=== PATIENT | female | born 1985 | race Caucasian/White ===

== ENCOUNTER 2021-03-21 09:17 | Emergency (ER) | payer SELFPAY ==
[2021-03-21 09:30] VITALS: BP 106/76; PULSE 85; RESP 18; TEMP 35.8; O2SAT 100
--- NOTE | 2021-03-21 10:30 | ED.ANIMALBIT ---
HPI - Animal Bite General Chief Complaint: Animal Bite Stated Complaint: dog bite Time Seen by Provider: 03/21/21 10:30 Source: patient and RN notes reviewed Mode of arrival: ambulatory Limitations: no limitations History of Present Illness HPI narrative: 35-year-old female presents concern for a dog bite to her right hand. I reports the bite occurred on Saturday night. Reports several puncture wounds and lacerations. Reports she has been using antibiotic ointment, warm compresses, ice. Reports she used a needle to open a blood blister. She reports the area is warm, red, slightly tender to touch, tender when she moves her fifth digit. She denies any general malaise, fever. MD complaint: animal bite Related Data Allergies Allergy/AdvReac Type Severity Reaction Status Date / Time No Known Allergies Allergy Verified 03/21/21 09:43 Review of Systems Review of Systems: CONSTITUTIONAL: Denies malaise, chills, sweats, or fever. CARDIOVASCULAR: Denies chest pain, palpitations, or edema. SKIN: Reports lacerations and puncture wounds to the right hand, reports surrounding redness, tenderness MUSCULOSKELETAL: Denies myalgia. Denies decreased strength, sensation, range of motion NEUROLOGIC: Denies numbness, weakness All systems reviewed & are unremarkable except as noted in HPI and below PMFSH Family History Family History (Updated 03/24/18 @ 16:11 by DOCTOR UNKNOWN) Father Patient's father is in good health Sibling Patient's brother is in good health Other Diabetes mellitus Social History Social History Smoking status: Never smoker Alcohol intake: current Comments At time of signature, agree with nursing past medical, surgical, social and family history. There is no relevant family history pertinent to the presenting complaint Exam Narrative: GENERAL: Well-appearing, well-nourished, and in no acute distress. HEAD: Normocephalic EYES: PERRLA, conjunctivae clear NECK: Supple. CHEST: Speaks in full sentences. No respiratory distress. HEART: Regular rate and rhythm. Normal and equal peripheral pulses. EXTREMITIES: Right hand and digits of hand have normal strength and sensation. 5/5 strength with digit flexion, extension. Range of motion normal. No clubbing, cyanosis noted. Mild edema, erythema, tenderness, warmth at the base of digits 4 and 5 surrounding scabbed lacerations. Normal digital cascade with flexion of fingers, median, ulnar and radial nerve intact. Normal sensation of each side of finger. Can perform 'okay' sign, 'cross over finger test of index and middle fingers' and 'thumbs up' sign. No scissoring. Normal thumb opposition. Good capillary refill and radial pulse. Distal capillary refill less than 3 seconds. SKIN: Warn, dry, intact, pink. No rash. 3 linear scabbed lacerations noted surrounding the base of digits 4 and 5 of the right hand with surrounding erythema, mild edema, mild induration, warmth. NEURO: Alert and oriented x3. PSYCH: Normal mood and affect Course Course Emergency Course: Patient is aware of diagnosis, understands and agrees to treatment plan. Anticipatory guidance given. Patient agrees to follow-up as directed and is aware of reasons to seek care at the emergency department. Portions of this record may have been created with voice recognition software Vital Signs Vital signs: Vital Signs Temperature 96.4 F L 03/21/21 09:30 Pulse Rate 85 03/21/21 09:30 Respiratory Rate 18 03/21/21 09:30 Blood Pressure 106/76 03/21/21 09:30 Pulse Oximetry 100 03/21/21 09:30 Temperature 96.4 F L 03/21/21 09:30 Pulse Rate 85 03/21/21 09:30 Respiratory Rate 18 03/21/21 09:30 Blood Pressure 106/76 03/21/21 09:30 Pulse Oximetry 100 03/21/21 09:30 Reviewed. MDM - Animal Bite MDM Narrative Medical decision making narrative: Exam findings show no acute concerns or changes; patient is non-toxic appearing and is in no distress. Patient is appropriate for outpatient
--- NOTE | 2021-03-22 08:50 | PC.NURSE ---
called and requested note for work. migue gabriel did provide work note for pt to [employer] at [employer] today, aware of need to provide identification.
== END 2021-03-21 10:40 | disposition home or self-care (01) ==
PROVIDERS: Emergency Provider Nurse Practitioner
DX: S61.411A Laceration without foreign body of right hand, initial encounter (principal); S61.431A Puncture wound without foreign body of right hand, initial encounter; W54.0XXA Bitten by dog, initial encounter
CPT/HCPCS: 99213; G0463